=== PATIENT | female | born 1995 | race African-American/Black ===

== ENCOUNTER 2021-10-26 20:58 | Emergency (ER) | payer OTHER ==
[2021-10-26 21:05] VITALS: BP 119/65; PULSE 85; TEMP 98.1; BMI 33.5
[2021-10-26] MEDS ORDERED: diazePAM 5 MG TABLET PO ONE (23:04)
[2021-10-26] MEDS ORDERED: KETOROLAC TROMETHAMINE 30 MG/1 ML VIAL IM ONE (23:04)
[2021-10-26] MEDS ORDERED: KETOROLAC TROMETHAMINE 30 MG/1 ML VIAL ONE (23:07)
[2021-10-26] MEDS ORDERED: diazePAM 5 MG TABLET ONE (23:07)
== END 2021-10-27 | disposition home or self-care (01) ==
LOC: JERFT 20:58 → JER 20:58 → JERFT 10-27
PROC: 3E023GC Introduction of Other Therapeutic Substance into Muscle, Percutaneous Approach (ICD-10-PCS; principal; 2021-10-26)
DX: S89.91XA Unspecified injury of right lower leg, initial encounter (principal); W19.XXXA Unspecified fall, initial encounter
CPT/HCPCS: 73562-TC-RT-FY; 99284-25